=== PATIENT | male | born 1950 | race Caucasian/White ===

== ENCOUNTER 2022-04-29 05:54 | Day surgery (SDC) | payer MEDICARE, OTHER ==
[2022-04-22 14:53] LABS: BASOPHILS # (AUTO) 0.1 X10'3 (0-0.2); BASOPHILS % (AUTO) 0.9 % (0-1); EOSINOPHILS # (AUTO) 0.3 X10'3 (0-0.9); EOSINOPHILS % (AUTO) 4.4 % (0-6); LYMPHOCYTES # (AUTO) 0.9 X10'3 (1.1-4.8); LYMPHOCYTES % (AUTO) 13.5 % (21-51); MEAN CORPUSCULAR HEMOGLOBIN 29.9 PG (27.0-31.0); MEAN CORPUSCULAR HGB CONC 33.5 g/dL (33.0-36.5); MEAN CORPUSCULAR VOLUME 89.1 FL (78-98); MEAN PLATELET VOLUME 7.1 FL (7.4-10.4); MONOCYTES # (AUTO) 0.5 X10'3 (0-0.9); MONOCYTES % (AUTO) 7.3 % (2-12); NEUTROPHILS # (AUTO) 5.2 X10'3 (1.8-7.7); NEUTROPHILS % (AUTO) 73.9 % (42-75); PRE OP HEMATOCRIT 37.4 % (42.0-52.0); PRE OP HEMOGLOBIN 12.5 g/dL (14.0-17.9); PRE OP PLATELET COUNT 234 X10'3 (140-440); RED CELL DISTRIBUTION WIDTH 13.3 % (11.5-14.5)
[2022-04-22 14:57] LABS: CLARITY,URINE CLEAR (Clear); COLOR,URINE YELLOW (Yellow); GLUCOSE, URINE NEGATIVE (Neg); KETONES,URINE NEGATIVE (Neg); LEUKOCYTE ESTERASE ,URINE NEGATIVE (Neg); NITRITES, URINE NEGATIVE (Neg); OCCULT BLOOD,URINE TRACE-INTACT (Neg); PROTEIN,URINE 100 mg/dl (Neg); UROBILINOGEN,URINE 0.2 E.U/dL (0.2-1.0)
[2022-04-22 15:00] LABS: UA COLLECTION TYPE CLN CATCH MIDSTREAM
[2022-04-22 15:09] LABS: ALBUMIN 3.6 G/DL (3.4-5.0); ALBUMIN/GLOBULIN RATIO 0.8 (1.1-1.5); ALKALINE PHOSPHATASE 114 IU/L (46-116); BLOOD UREA NITROGEN 55 MG/DL (7-18); CALCIUM 8.7 MG/DL (8.5-10.1); CHLORIDE 107 MMOL/L (99-107); CREATININE 4.22 MG/DL (0.60-1.10); PRE OP ALT 32 U/L (30-65); PRE OP ANION GAP 8 (8-16); PRE OP AST 17 U/L (10-37); PRE OP BILIRUB, TOTAL 0.4 MG/DL (0.0-1.0); PRE OP GLUCOSE 90 MG/DL (70-104); PRE OP POTASSIUM 4.9 MMOL/L (3.4-5.1); PRE OP SODIUM 138 MMOL/L (135-145); TOTAL CARBON DIOXIDE 22.8 MMOL/L (24-32); TOTAL PROTEIN 7.9 G/DL (6.4-8.2); eGFR 14 ML/MIN
[2022-04-22 15:15] LABS: BACTERIA,URINE NONE SEEN /HPF (Neg); RBC,URINE 0-2 /HPF (0-2); SQUAMOUS EPITHELIAL CELL,UR FEW /LPF (FEW); WBC,URINE NONE SEEN /HPF (0-4)
[2022-04-29] VITALS (8 sets, daily range): BP systolic 107–138; BP diastolic 63–83
[~2022-04-29] VITALS: Ht 180.3 cm; Wt 91.3 kg
[~2022-04-29 05:54] MED LIST: DILT240T12 PO; LOSA25TA41 PO; ceFAZolin inj. 2,000 MG in dextrose 5%-water 100 ML IV ONE; famotidine 20mg tablet PO ONE; normal saline 1000ml 1,000 ML IV SCH; ringers solution, lacted 1,000 ML IV SCH
[2022-04-29] MEDS ORDERED: proCHLORperazine 10 MG/2 ml inj IV PRN (08:45)
[2022-04-29] MEDS ORDERED: morphine 4 MG/ML inj SYRINge IV PRN (08:45)
[2022-04-29] MEDS ORDERED: ondansetron/PF 4mg/2ml inj IV PRN (08:45)
[2022-04-29] MEDS ORDERED: ringers solution, lacted 1,000 ML IV SCH (08:45)
[2022-04-29] MEDS ORDERED: morphine 2 MG/ML inj. syringe IV PRN (08:45)
[2022-04-29] MEDS ORDERED: meperidine/PF 25mg/ml syringe IV PRN ×3 (08:45)
[2022-04-29] MEDS ORDERED: heparin 10,000 units/1 ML INJ ONE (09:16)
[2022-04-29] MEDS ORDERED: fentaNYL/PF 50MCG/1 ML 2ML syringe ONE (09:38)
[2022-04-29] MEDS ORDERED: MIDAZolam 1 MG/ML 5ML VIAL ONE (09:38)
[2022-04-29] MEDS ORDERED: ROPIVAcaine 0.5% (5mg/ml) 30ml vial ONE (09:40)
[2022-04-29] MEDS ORDERED: sevoflurane 250ml liquid IH ONE (09:42)
[2022-04-29] MEDS ORDERED: LIDOcaine 2% (20mg/ml) 5ml vial ONE ×2 (10:04)
[2022-04-29] MEDS ORDERED: propofol inj 20 ML IV ONE (10:08)
[2022-04-29] MEDS ORDERED: LIDOcaine 1% 30ml preserv. free vial ONE (10:18)
--- NOTE | 2022-04-29 11:47 | NUR ---
Received from OR via [facility], accompanied by Anesthesiologist and report given by MONIQUE Anesthesiologist. PATIENT WAKING UP, DENIES PAIN, V/S WNL, PIV 20G TO LUE, RIGHT ARM DERMABONDED DRESSING C/D/I WITH SLING. Addendum: 04/29/22 at 1213 by Gerson Bah RN Amended: Links added.
--- NOTE | 2022-04-29 12:35 | NUR ---
PATIENT STATED THAT "HE CAN'T TAKE [facility] FOR HOME PAIN MEDICATION". HE PREFER TO HAVE DIFFERENT MEDICATION. RN UPDATED MD AND INSTRUCTED TO CALL MD'S OFFICE TO HAVE DIFFERENT PRESCRIPTION. [id number] MCCOY'S OFFICE AND LEFT VOICEMAIL.
--- NOTE | 2022-04-29 12:47 | NUR ---
ALL DISCHARGE CRITERIA HAS BEEN MET. VSS, DENIES PAIN, ABLE TO SAFELY AMBULATE AND TRANSFER SELF. IV TAKEN OUT WITHOUT ANY COMPLICATIONS. ALL DISCHARGE INSTRUCTIONS COVERED WITH PATIENT AND ALL QUESTIONS ANSWERED. PATIENT TAKEN OUT VIA WHEELCHAIR WITH ALL BELONGINGS TO PERSONAL VEHICLE WHERE FAMILY DROVE PATIENT HOME Addendum: 04/29/22 at 1313 by Gerson Bah RN Amended: Links added.
--- NOTE | 2022-04-29 13:14 | NUR ---
UPDATED PATIENT'S SPOUSE ABOUT NEW PAIN MEDICATION THAT IS GOING TO BE PRESCRIBED THROUGH DR. MCCOY'S OFFICE.
== END 2022-04-29 12:47 | disposition home or self-care (01) ==
LOC: PAS 05:54
PROVIDERS: ATTEND Surgery
DX: N17.9 Acute kidney failure, unspecified (principal); D63.8 Anemia in other chronic diseases classified elsewhere; N18.4 Chronic kidney disease, stage 4 (severe); I12.9 Hypertensive chronic kidney disease with stage 1 through stage 4 chronic kidney disease, or unspecified chronic kidney disease; Z85.07 Personal history of malignant neoplasm of pancreas; Z98.890 Other specified postprocedural states; Z95.4 Presence of other heart-valve replacement; Z79.899 Other long term (current) drug therapy; Z87.442 Personal history of urinary calculi
CPT/HCPCS: 36415; 36821; 80053; 81001; 82948; 85025; 87811; 93005; J0690; J1644; J2250; J2704; J2795; J3010; J3490; J7030; J7040; J7060; J7120; Z7506; Z7508; Z7512; A4215; A4565; A4618; A7000